=== PATIENT | female | born 1960 | race Caucasian/White ===

== ENCOUNTER 2025-02-08 13:56 | Inpatient (IN) | payer MEDICARE, OTHER ==
[~2025-02-08] VITALS: Ht 165.1 cm; Wt 68.0 kg
[2025-02-08] MEDS ORDERED: ASCO500C18 PO (14:12)
[2025-02-08] MEDS ORDERED: NA P133E RC (14:12)
[2025-02-08] MEDS ORDERED: CHOL500062 PO (14:12)
[2025-02-08] MEDS ORDERED: ATOR10TA PO (14:12)
[2025-02-08] MEDS ORDERED: DONE5TAB34 PO (14:12)
[2025-02-08] MEDS ORDERED: BISA10SU61 RC (14:12)
[2025-02-08] MEDS ORDERED: DOCU100C36 PO (14:12)
[2025-02-08] MEDS ORDERED: INSU100I26 SQ (14:12)
[2025-02-08] MEDS ORDERED: FOLI1TAB94 PO (14:12)
[2025-02-08] MEDS ORDERED: ACET325C7 PO (14:12)
[2025-02-08] MEDS ORDERED: EMPA25TA PO (14:12)
[2025-02-08] MEDS ORDERED: LOSA50TA39 PO (14:18)
[2025-02-08] MEDS ORDERED: SENN8.6T19 PO (14:18)
[2025-02-08] MEDS ORDERED: MULT-594 PO (14:18)
[2025-02-08] MEDS ORDERED: CYAN100T44 PO (14:18)
[2025-02-08] MEDS ORDERED: METO25TA6 PO (14:18)
[2025-02-08] MEDS ORDERED: METF-442 PO (14:18)
[2025-02-08] MEDS ORDERED: PANT40TA49 PO (14:18)
[2025-02-08] MEDS ORDERED: TRAZ-257 PO (14:18)
[2025-02-08] MEDS ORDERED: OLAN10TA73 PO (14:18)
[2025-02-08 14:19] LABS: PLATELET COUNT (AUTO) 178 K/uL (179-408); RED BLOOD CELL COUNT(AUTO) 4.43 MIL/uL (3.63-4.92); RED CELL DISTRIBUTION WIDTH 14.4 % (12.3-17.7); WHITE BLOOD COUNT (AUTO) 8.6 K/uL (3.8-11.8)
[2025-02-08 14:28] LABS: CREATININE 0.6 mg/dL (0.6-1.3); SODIUM SERUM 134.0 mmol/L (136-145); UREA NITROGEN, BLOOD 12.0 mg/dL (7-18)
[2025-02-08 14:32] LABS: ETHANOL < 3 MG/DL (0-10)
[2025-02-08 14:34] LABS: ASPARTATE AMINOTRANSFERASE 7.0 U/L (15-37); TOTAL PROTEIN, SERUM 7.2 g/dL (6.4-8.2)
[2025-02-08 14:47] LABS: *BILIRUBIN,URIN NEGATIVE (NEGATIVE); *BLOOD, URINE 1+ (NEGATIVE); *CLARITY,URINE CLEAR (CLEAR); *COLOR,URINE YELLOW (YELLOW); *KETONES,URINE NEGATIVE (NEGATIVE); *PROTEIN,URINE NEGATIVE (NEGATIVE); *UROBILINOGEN,URINE 0.2 E.U./dl (NORMAL); LEUKOCYTE ESTERASE ,URINE TRACE (NEGATIVE); NITRITE, URINE NEGATIVE (NEGATIVE); UGLUCOSE 1+ (NEGATIVE)
[2025-02-08 15:00] LABS: SQUAMOUS EPITHELIAL CELL,UR FEW /HPF (NONE SEEN)
[2025-02-08 15:01] LABS: *AMPHETAMINE, URINE NEGATIVE (NEGATIVE); *BARBITURATE, URINE NEGATIVE (NEGATIVE); *BENZODIAZEPINE, URINE NEGATIVE (NEGATIVE); *CANNABINOID, URINE NEGATIVE (NEGATIVE); *COCCAINE, URINE NEGATIVE (NEGATIVE); *OPIATE, URINE NEGATIVE (NEGATIVE); *PHENCYCLIDINE SCREEN,URINE NEGATIVE (NEGATIVE); FENTANYL, URINE NEGATIVE (NEGATIVE)
[2025-02-08] MEDS ORDERED: ACETAMINOPHEN 325 MG TABLET PO PRN (18:30)
[2025-02-08] MEDS ORDERED: LORAZEPAM 1 MG TABLET PO PRN ×4 (18:30→19:00)
[2025-02-08] MEDS ORDERED: ZOLPIDEM 5 MG TABLET PO PRN ×2 (18:30)
[2025-02-08] MEDS ORDERED: BLOOD SUGAR DIAGNOSTIC 1 EACH STRIP VI ONE ×2 (18:30)
[2025-02-08] MEDS: BLOOD SUGAR DIAGNOSTIC 1 EACH STRIP VI ONE (19:00)
[2025-02-08] MEDS ORDERED: MAGNESIUM HYDROXIDE 30 ML LIQUID UDC PO PRN (19:00)
[2025-02-08] MEDS ORDERED: DEXTROSE 50% 50 ML DISP.SYRIN IV PRN (19:15)
[2025-02-08] MEDS ORDERED: FLEET ENEMA 133 ML BOTTLE RC PRN (19:15)
[2025-02-08] MEDS ORDERED: BISACODYL 10 MG SUPP.RECT RC PRN (19:15)
[2025-02-08 20:00] VITALS: TEMP 97.9; O2SAT 98
[2025-02-08] MEDS: SENNOSIDES 1 TABLET PO SCH (20:35)
[2025-02-08] MEDS: BLOOD SUGAR DIAGNOSTIC 1 EACH STRIP VI SCH (20:35)
[2025-02-08] MEDS: ATORVASTATIN 10 MG TABLET PO SCH (20:36)
[2025-02-08] MEDS: METOPROLOL TARTRATE 25 MG TABLET PO SCH (20:36)
[2025-02-09] MEDS: TEMAZEPAM 7.5 MG CAPSULE PO PRN (00:37)
[2025-02-09] MEDS: LORAZEPAM 2 MG/1 ML VIAL IM ONE (08:23)
[2025-02-09] MEDS: MULTIVITAMINS,THERAPEUTIC TABLET PO SCH (09:00)
[2025-02-09] MEDS: METFORMIN HCL 500 MG TABLET PO SCH (09:00)
[2025-02-09] MEDS: EMPAGLIFLOZIN 25 MG TABLET PO SCH (09:00)
[2025-02-09] MEDS: CHOLECALCIFEROL 1,000 UNIT TABLET PO SCH (09:00)
[2025-02-09] MEDS: LOSARTAN POTASSIUM 50 MG TABLET PO SCH (09:00)
[2025-02-09] MEDS: DOCUSATE SODIUM 100 MG CAPSULE PO SCH (09:00)
[2025-02-09] MEDS: FOLIC ACID 1 MG TABLET PO SCH (09:00)
[2025-02-09] MEDS: PANTOPRAZOLE SODIUM 40 MG TABLET.DR PO SCH (09:00)
[2025-02-09] MEDS: CYANOCOBALAMIN 1,000 MCG TABLET PO SCH (09:00)
[2025-02-09] MEDS ORDERED: CYANOCOBALAMIN 100 MCG TABLET PO SCH (09:00)
[2025-02-09] MEDS: INSULIN GLARGINE,HUM 300 UNITS/3 ML CARTRIDGE SQ SCH (09:00)
[2025-02-09] MEDS ORDERED: INSULIN GLARGINE,HUM 300 UNITS/3 ML CARTRIDGE SQ SCH (09:00)
[2025-02-09] MEDS: ASCORBIC ACID 500 MG TABLET PO SCH (09:00)
[2025-02-09 20:00] VITALS: BP 168/70; TEMP 98.1; O2SAT 97
[2025-02-09] MEDS: TRAZODONE 50 MG TABLET PO SCH (20:38)
[2025-02-09] MEDS: LORAZEPAM 1 MG TABLET PO PRN (22:23)
[2025-02-10 08:12] VITALS: BP 142/78; TEMP 96.8; O2SAT 97
[2025-02-10] MEDS: OLANZAPINE 5 MG TABLET PO SCH (08:26)
[2025-02-10] MEDS: DIVALPROEX 250 MG TABLET.DR PO SCH (08:26)
[2025-02-10] MEDS: INSULIN REGULAR, HUMAN 1000 UNIT/10 ML VIAL SQ PRN (12:39)
[2025-02-10] MEDS: ACETAMINOPHEN 325 MG TABLET PO PRN (14:11)
[2025-02-10] MEDS: MAG HYDROX/AL HYDROX/SIMETH 30 ML LIQUID UDC PO PRN (14:11)
[2025-02-10 17:42] VITALS: BP 138/84; TEMP 97.7; O2SAT 97
[2025-02-10 20:00] VITALS: BP 162/87; TEMP 98.2; O2SAT 96
[2025-02-11 16:22] VITALS: BP 156/84; TEMP 97.9; O2SAT 98
[2025-02-11 20:00] VITALS: BP 153/78; TEMP 98.2; O2SAT 97
[2025-02-12 20:13] VITALS: BP 156/86; TEMP 98.1; O2SAT 97
[2025-02-12] MEDS: TRAZODONE 100 MG TABLET PO SCH (20:17)
[2025-02-13 08:20] VITALS: BP 126/71; TEMP 98.1; O2SAT 99
[2025-02-13 16:29] VITALS: BP 118/71; TEMP 98.1; O2SAT 99
[2025-02-13] MEDS: GLUCERNA SHAKE 237 ML CAN PO SCH (16:40)
[2025-02-13 19:55] VITALS: BP 155/89; TEMP 98; O2SAT 96
[2025-02-14 08:40] VITALS: BP 132/66; TEMP 98.1; O2SAT 99
[2025-02-14 16:49] VITALS: BP 135/61; TEMP 98.1; O2SAT 99
[2025-02-14 19:54] VITALS: BP 149/71; TEMP 98.1; O2SAT 97
[2025-02-14] MEDS: GUAIFENESIN/DEXTROMETHORPHAN TAB.SR.12H PO SCH (21:13)
[2025-02-15 08:54] VITALS: BP 148/84; TEMP 97.6; O2SAT 97
[2025-02-15 20:00] VITALS: BP 151/80; TEMP 98; O2SAT 95
[2025-02-15] MEDS: TEMAZEPAM 7.5 MG CAPSULE PO PRN (23:01)
[2025-02-16 09:07] VITALS: BP 148/76; TEMP 98; O2SAT 99
[2025-02-16 14:06] VITALS: BP 165/97
[2025-02-16] MEDS: CLONIDINE HCL 0.1 MG TABLET PO ONE (14:06)
== END 2025-02-16 14:30 | DRG 885 ==
LOC: ER 13:56 → GPS 17:36
PROVIDERS: ADMIT Psychiatry & Neurology Psychiatry; ATTEND Nurse Practitioner Family
DX: F25.0 Schizoaffective disorder, bipolar type (principal); F01.53 Vascular dementia, unspecified severity, with mood disturbance; F01.52 Vascular dementia, unspecified severity, with psychotic disturbance; E87.1 Hypo-osmolality and hyponatremia; K21.9 Gastro-esophageal reflux disease without esophagitis; E78.5 Hyperlipidemia, unspecified; J44.9 Chronic obstructive pulmonary disease, unspecified; Z88.8 Allergy status to other drugs, medicaments and biological substances; G47.00 Insomnia, unspecified; Z79.899 Other long term (current) drug therapy; R13.10 Dysphagia, unspecified; F17.210 Nicotine dependence, cigarettes, uncomplicated; E11.9 Type 2 diabetes mellitus without complications; G40.909 Epilepsy, unspecified, not intractable, without status epilepticus; Z79.84 Long term (current) use of oral hypoglycemic drugs; I10 Essential (primary) hypertension; I45.10 Unspecified right bundle-branch block
CPT/HCPCS: 36415; 71045; 84443; 85025; A4606; A4663; G0480; J1815; J2060; J3490